=== PATIENT | male | born 1990 | race Caucasian/White ===

== ENCOUNTER 2017-06-07 13:27 | Emergency (ER) | payer MEDICAID, OTHER ==
[2017-06-07 13:48] VITALS: BMI 28.3
[2017-06-07 13:51] VITALS: BP 147/97; PULSE 85; RESP 18; TEMP 98.4; O2SAT 100
--- NOTE | 2017-06-07 14:34 | C.PDOC ---
History Of Present Illness 26 year old male who presents to the ER for an evaluation of left sided neck pain that began 2 days ago. Patient states "I was helping to move my friend and twisted neck". Patient reports the pain is localized to the left side of the neck and worsens with head rotation. Denies direct trauma/injury, fever, chills , headache, dizziness, visual changes, weakness, sensory or vascular deficits of the upper extremities. Ambulate to Ed for evaluation, not in any apparent distress. Time Seen by Provider: 06/07/17 13:54 Chief Complaint (Nursing): Upper Extremity Problem/Injury History Per: Patient History/Exam Limitations: no limitations Onset/Duration Of Symptoms: Days Current Symptoms Are (Timing): Still Present Exacerbating Factor(s): Movement (Head rotation) Recent travel outside of the [place]: No Past Medical History Reviewed: Historical Data, Nursing Documentation, Vital Signs Vital Signs: Last Vital Signs Temp 98.4 F 06/07/17 13:51 Pulse 85 06/07/17 13:51 Resp 18 06/07/17 13:51 BP 147/97 H 06/07/17 13:51 Pulse Ox 100 06/07/17 14:53 - Medical History PMH: Anxiety, Depression Surgical History: No Surg Hx Family History: States: Unknown Family Hx - Social History Hx Alcohol Use: No Hx Substance Use: No - Immunization History Hx Tetanus Toxoid Vaccination: No Hx Influenza Vaccination: Yes Hx Pneumococcal Vaccination: No Review Of Systems Constitutional: Negative for: Fever, Chills Musculoskeletal: Positive for: Neck Pain Neurological: Negative for: Weakness, Numbness Physical Exam - Physical Exam Appears: Well, Non-toxic Skin: Normal Color, Warm, Dry, No Rash Eye(s): bilateral: PERRL Oral Mucosa: Moist, No Drooling Neck: Normal ROM, No Midline Cervical Tenderness, Paracervical Tenderness (mild Left sided w/ mild muscle spasm.), No Step Off Deformity, Supple Back: No Vertebral Tenderness Extremity: Normal ROM (x4), No Tenderness, No Pedal Edema, No Deformity Neurological/Psych: Oriented x3, Normal Speech, Normal Cognition, Normal Motor, Normal Sensation, Normal Reflexes ED Course And Treatment O2 Sat by Pulse Oximetry: 100 (Room air) Pulse Ox Interpretation: Normal - Other Rad C-spine X-Ray: Interpreted by Me, Viewed By Me Interpretation: (-) acut efx or sublux Progress Note: Cervical spine x-ray ordered. Motrin administered. On re-eavl, pt is afebrile, hemodynamicaly stable. Non-toxic. Neck: (+) mild Left sided paracrvical tenderness with muscle spasm. NO midline tenderness, no skin changes. Neuorlogicaly intact. Imaging review and appears noraml. Pt advised. ref. to F/u with PMD in 2-3 days for re-eavl. return to ED if any worsening or new changes. Disposition Counseled Patient/Family Regarding: Studies Performed, Diagnosis, Need For Followup, Rx Given - Disposition Referrals: [facility] [Outside] Disposition: HOME/ ROUTINE Disposition Time: 14:34 Condition: STABLE Additional Instructions: Take pain medication as prescribed as need Follow up with PM Din 2-3 days for re-evaluation. Return to ED if any worsening or new changes. Prescriptions: Ibuprofen [Motrin Tab] 600 mg PO Q6 #14 tab Methocarbamol [Robaxin] 500 mg PO TID #14 tab Instructions: Cervical Sprain (ED) Forms: [employer] ([place]ian), Work Excuse - Clinical Impression Clinical Impression: Cervical strain - Scribe Statement The provider has reviewed the documentation as recorded by the Scribe James Kent All medical record entries made by the Ellaibe were at my direction and personally dictated by me. I have reviewed the chart and agree that the record accurately reflects my personal performance of the history, physical exam, medical decision making, and the department course for this patient. I have also personally directed, reviewed, and agree with the discharge instructions and disposition.
--- NOTE | 2017-06-07 15:40 | RAD ---
PROCEDURE: Cervical Spine Radiographs. HISTORY: Pain. COMPARISON: None. FINDINGS: BONES: Alignment maintained. No fracture. Dens Intact. Straightening of the cervical spine which could be positional or due to muscle spasm. DISC SPACES: Normal. SOFT TISSUES: Normal. No prevertebral soft tissue swelling. OTHER FINDINGS: None. IMPRESSION: No evidence of acute fracture or subluxation.
== END 2017-06-07 15:01 | disposition home or self-care (01) ==
LOC: C.ER 13:27
DX: S16.1XXA Strain of muscle, fascia and tendon at neck level, initial encounter (principal); X50.1XXA Overexertion from prolonged static or awkward postures, initial encounter; Y93.89 Activity, other specified; Y92.89 Other specified places as the place of occurrence of the external cause